=== PATIENT | male | born 1980 | race Two or more races ===

== ENCOUNTER 2020-03-05 15:24 | Inpatient (IN) | payer OTHER ==
[~2020-03-05] VITALS: Ht 172.7 cm; Wt 90.2 kg
[2020-03-05 17:28] LABS: Basophils # (auto) 0.1 10 ^3/uL (0-0.2); Basophils % (auto) 1.3 % (0.0-2.0); Eosinophils # (auto) 0.1 10 ^3/uL (0-0.8); Eosinophils % (auto) 1.8 % (0.0-7.0); Hematocrit 42.5 % (41.0-53.0); Hemoglobin 15.1 g/dL (13.5-17.5); Lymphocytes # (auto) 1.5 10 ^3/uL (0.4-5.4); Lymphocytes % (auto) 21.3 % (10.0-50.0); Mean Corpuscular Hemoglobin 29.8 pg (28.0-32.0); Mean Corpuscular Hgb Conc. 35.5 g/dL (32.0-36.0); Mean Corpuscular Volume 84.1 fL (80.0-100.0); Monocytes # (auto) 0.7 10 ^3/uL (0-1.3); Monocytes % (auto) 9.2 % (0.0-12.0); Neutrophils # (auto) 4.8 10 ^3/uL (1.6-8.6); Neutrophils % (auto) 66.4 % (37.0-80.0); Nucleated Red Blood Cells % 0.4 %; Platelet Count (auto) 288 10^3/uL (140-450); Red Blood Cells 5.06 10^6/uL (4.5-5.90); Red Cell Distribution Width 13.1 % (11.8-14.3); White Blood Cell 7.3 10^3/uL (4.4-10.8)
[2020-03-05] MEDS ORDERED: HYDROcodone-ACET 10/325MG TAB PO PRN (17:30)
[2020-03-05 18:06] LABS: Albumin 4.1 g/dL (3.4-5.0); Anion Gap 7 (5-15); Blood Urea Nitrogen 16 mg/dL (7-18); Calcium 8.3 mg/dL (8.5-10.1); Carbon Dioxide 22 mmol/L (21-32); Chloride 111 mmol/L (98-107); Glucose 87 mg/dL (74-106); Potassium 3.6 mmol/L (3.5-5.1); Sodium 140 mmol/L (136-145)
[2020-03-05 18:17] LABS: Alanine Aminotransferase 24 U/L (16-61); Alkaline Phosphatase 92 U/L (45-117); Aspartate Aminotransferase 15 U/L (15-37); GFR African American 99 mL/min; GFR Non-African American 82 mL/min
[2020-03-05 18:18] LABS: Bilirubin, Total 0.7 mg/dL (0.2-1.0); Total Protein 7.5 g/dL (6.4-8.2)
[2020-03-05 19:30] LABS: INR 1.08 (0.9-1.15); Partial Thromboplastin Time 29.4 sec (23.0-31.2)
[2020-03-06 01:50] VITALS: BP 150/90
--- NOTE | 2020-03-06 01:50 | NUR ---
MS admit from [facility] admitted to tele/MS. Patient oriented to AJ BERG RN primary RN, unit, room, bed, and unit policies regarding patient care and visiting hours. Inmate, guards at bedside. Safety measures maintained by keeping the bed locked in lowest position, 2 side rails up, personal items and call light within reach. Patient complaining of pain, will medicate. Patient kept NPO. Patient aware. Patient weighed by bed scale and encouraged to call if they need something. All questions and concerns addressed, patient verbalized understanding.
--- NOTE | 2020-03-06 02:30 | NUR ---
IV insertion IV access obtained, via clean sterile technique by inserting 20 gauge catheter at LFA after 1 attempt. IV secured properly. No trauma to site. Patient tolerated well.
--- NOTE | 2020-03-06 04:32 | NUR ---
MRSA swab and urine sample sent down to the lab.
[2020-03-06 05:00] VITALS: BP 131/90
[2020-03-06 05:31] LABS: Urine Amorphous Crystal MOD /hpf (None Seen); Urine Bacteria MOD /hpf (None Seen); Urine Blood Negative /uL (Negative); Urine Specific Gravity 1.017 (1.001-1.035); Urine WBC 45 /hpf (0 - 3)
[2020-03-06 09:00] VITALS: BP 144/73
[2020-03-06] MEDS ORDERED: LIDOCAINE 1% HCL (LOCAL ANESTH.) INJ 20ML MDV ONE ×2 (10:06)
[2020-03-06] MEDS ORDERED: BUPIVACAINE 0.5% MPF INJ 30ML SDV IJ ONE (10:06)
[2020-03-06] MEDS ORDERED: BUPIVACAINE HCL 0 ML ONE (10:07)
[2020-03-06] MEDS ORDERED: SUCCINYLCHOLINE CHLORIDE 20 MG/ML 10ML VIAL IV ONE (11:30)
[2020-03-06] MEDS ORDERED: BUPIVACAINE 0.25% INJ 50ML VIAL ONE (11:45)
--- NOTE | 2020-03-06 11:45 | NUR ---
Patient brought to pre-op for right inguinal hernia repair to be performed by Dr. Orozco via bed. Consents signed by patient. Gave reports to Pre-op RN.
[2020-03-06] MEDS ORDERED: cefOXitin 2GM/100ML 100 ML IV ONE (12:02)
[2020-03-06] MEDS ORDERED: MIDAZOLAM HCL 1MG/1ML-2 ML VIAL ONE (12:11)
[2020-03-06] MEDS ORDERED: SODIUM CHLORIDE LOCK 10 ML ONE (12:11)
[2020-03-06] MEDS ORDERED: PROPOFOL 10 MG/ML 20 ML IV ONE (12:11)
[2020-03-06] MEDS ORDERED: fentaNYL CITRATE 100 MCG/2 ML VL ONE (12:11)
[2020-03-06] MEDS ORDERED: ROCURONIUM 10MG/ML 10ML VIAL IV ONE (12:11)
[2020-03-06] MEDS ORDERED: GLYCOPYRROLATE 0.2 MG/ML 1ML VIAL ONE (12:11)
[2020-03-06] MEDS ORDERED: ONDANSETRON HCL 4 MG/2 ML VIAL ONE (12:11)
[2020-03-06] MEDS ORDERED: NEOSTIGMINE 1 MG/ML INJ (10mg/10ML VIAL) ONE (12:11)
[2020-03-06] MEDS ORDERED: MEPERIDINE HCL (25 MG/ML) 1ML VIAL ONE (12:11)
[2020-03-06] MEDS ORDERED: ceFAZolin 1GM/50ML 100 ML IV ONE (12:14)
[2020-03-06 13:00] VITALS: BP 143/91
[2020-03-06] MEDS ORDERED: MORPHINE SULF INJ 2 MG/ML SYRINGE 1ML IV PRN (14:15)
[2020-03-06] MEDS ORDERED: OXYCODONE W/ ACETAMINOPHEN 5/325MG TABLET PO PRN (14:15)
[2020-03-06] MEDS ORDERED: HYDROmorphone HCL 2 MG/ML VL IV PRN (14:15)
[2020-03-06] MEDS ORDERED: METOCLOPRAMIDE HCL 5MG/ml INJ 2ml VIAL IV PRN (14:15)
[2020-03-06] MEDS ORDERED: MORPHINE SULFATE 4 MG/ML SYR/VIAL IV PRN (14:15)
--- NOTE | 2020-03-06 14:30 | NUR ---
Received reports from TREATMENT COUNSELOR, patient is S/P repair of right incarcerated inguinal area and repair of umbilical hernia performed by Dr. Orozco. Patient back to room via bed, alert and oriented x4, not in respiratory distress, with right inguinal dressing and umbilical dressing dry and intact. Bed alarm on and side rails up x2. Will continue care.
[2020-03-06] MEDS ORDERED: TRAM-300 PO (15:02)
[2020-03-06] MEDS: OXYCODONE W/ ACETAMINOPHEN 5/325MG TABLET PO PRN ×2 (15:10→19:52)
[2020-03-06 16:43] VITALS: BP 139/85
[2020-03-06 18:03] VITALS: BP 139/85
--- NOTE | 2020-03-06 18:39 | NUR ---
Patient post op pain rate 4/10 after medication administration, encouraged early ambulation. Started on regular diet. Discharge back to [facility] later tonight. Discharge papers and instructions ready.
--- NOTE | 2020-03-06 19:45 | NUR ---
Opening Shift Note Assumed care of patient, awake and alert. Patient eating in bed. No S/S of distress/SOB or pain. Guards at bedside. Safety measures maintained by keeping the bed locked in lowest position, 2 side rails up, personal items and call light within reach. Instructed on POC and to call for assist PRN, will continue to monitor for changes Q1hr and PRN.
--- NOTE | 2020-03-06 20:52 | NUR ---
Patient discharged. Patient went down with guards. IV and ID bands taken out. VSS. No signs and symptoms of distress noted upon discharge.
== END 2020-03-06 20:52 | DRG 351 ==
LOC: EEVIPCON 15:24 → ER 15:24 → OVERFLOW 15:25 → SUATTDRO 17:24 → CENTRAL 03-06 01:45
PROVIDERS: ADMIT Internal Medicine; ATTEND Internal Medicine
PROC: 0WQF0ZZ Repair Abdominal Wall, Open Approach (ICD-10-PCS; 2020-03-06)
PROC: 3E0T3BZ Introduction of Anesthetic Agent into Peripheral Nerves and Plexi, Percutaneous Approach (ICD-10-PCS; 2020-03-06)
PROC: 3E0T33Z Introduction of Anti-inflammatory into Peripheral Nerves and Plexi, Percutaneous Approach (ICD-10-PCS; 2020-03-06)
PROC: 0YU50JZ Supplement Right Inguinal Region with Synthetic Substitute, Open Approach (ICD-10-PCS; principal; 2020-03-06 12:19)
DX: K40.30 Unilateral inguinal hernia, with obstruction, without gangrene, not specified as recurrent (principal); K42.0 Umbilical hernia with obstruction, without gangrene; F17.210 Nicotine dependence, cigarettes, uncomplicated; D17.6 Benign lipomatous neoplasm of spermatic cord; Z20.828 Contact with and (suspected) exposure to other viral communicable diseases; F12.90 Cannabis use, unspecified, uncomplicated; Z83.3 Family history of diabetes mellitus
CPT/HCPCS: 36415; 71045; 74176; 80053; 81001; 85025; 85610; 85730; 86850; 86900; 86901; 87081; 87426; G0378; J0330; J0690; J0694; J2001; J2250; J2405; J2704; J3490